=== PATIENT | male | born 1980 | race Caucasian/White ===

== ENCOUNTER 2016-09-15 15:38 | Emergency (ER) | payer OTHER ==
[~2016-09-15] VITALS: Ht 188 cm; Wt 92.3 kg
[~2016-09-15 15:38] MED LIST: AMLO-114 PO; AVP150 PO; INSULIN PUMP NOVOLOG; LISI40TA PO; MULT-506 PO; SIMV40TA2 PO; SYN150 PO
[2016-09-15 15:43] VITALS: TEMP 36.7; Ht 188 cm; Wt 92.3 kg
[2016-09-15] MEDS ORDERED: IBUPROFEN 600 MG TAB PO STA (15:55)
[2016-09-15] MEDS ORDERED: HYDROCODONE/ACETAMOPHEN 5/325MG TAB PO STA (15:55)
[2016-09-15] MEDS ORDERED: LIDO/EPINEPHRINE/SOD BICARB 20 ML VIAL INFIL ONE (16:00)
[2016-09-15] MEDS ORDERED: LISI-725 PO (16:03)
[2016-09-15] MEDS ORDERED: IRBE1TAB50 PO (16:04)
[2016-09-15] MEDS ORDERED: LEVO150T9 PO (16:05)
--- NOTE | 2016-09-15 16:45 | DIAGNOSTIC IMAGING REPORT ---
LEFT FEMUR 2 VIEWS ROUTINE CLINICAL HISTORY: LEFT, THIGH LAC FROM CHAINSAW trauma COMPARISON: None. DISCUSSION: The bones and joint spaces appear intact. There is no evidence of fracture, dislocation or bony disease. There is no evidence for soft tissue swelling. IMPRESSION: Negative study. Electronically signed by: Dieudonne Stark M.D. 09/15/2016 4:44 PM Dictated Date/Time: 09/15/2016 4:43 PM
[2016-09-15] MEDS ORDERED: HYDR-5688 PO (17:55)
[2016-09-15] MEDS ORDERED: CEPH500C2 PO (17:55)
--- NOTE | 2016-09-15 17:59 | EMERGENCY ROOM VISIT NOTE ---
ED Visit Note First contact with patient: 15:46 CHIEF COMPLAINT: Left thigh laceration just prior to arrival HISTORY OF PRESENT ILLNESS: Patient is a 35-year-old white male who presents to the emergency department for evaluation of a laceration to the left thigh from a chainsaw. He was cutting up wide, and the tree fell, knocking the chainsaw out of his hand and into his left leg. He does not believe the blade was running at this time. He was not wearing chaps. Bleeding was controlled with a bandage, the patient was ambulatory at the scene and complains only of a mild stinging pain that he rates a 4/10. He reports that his tetanus is up-to-date. He denies any numbness, tingling or weakness into the left leg. REVIEW OF SYSTEMS: Review of systems as per HPI. All other systems reviewed were negative. At least 6 systems reviewed. PMH: Electronic medical records are reviewed and summarized as above/below. See Problem List. SOCIAL HISTORY: Patient living at home with his family. Nonsmoker, drinks alcohol socially. PHYSICAL EXAM: Vital Signs: Reviewed Nurse's notes. CONSTITUTIONAL: Patient is a well-appearing 35-year-old white male who is awake and alert and in no acute distress. INTEGUMENTARY: There is a 12 cm long horizontal laceration on the anterior mid left thigh. The edges are gaping apart. There is no gross contamination the wound, but there are still some small particles of grass and fabric in the wound. There is no active bleeding. Laceration does extend through the fascial layer medially. The fascial defect is roughly 2 cm in diameter. There is injury to the muscle fibers deep to this. Hip and knee range of motion are full. The left lower extremity is neurovascularly intact. EMERGENCY DEPARTMENT COURSE: Patient was medicated with ibuprofen 600 mg and Riverside 5/325 2 tablets orally. X-rays of the left femur were obtained and were negative. Using sterile technique, the wound was prepped with Betadine and draped with sterile towels. 1% buffered lidocaine with epinephrine was infiltrated into the wound edges. When adequate anesthesia was obtained, the wound was irrigated copiously using over 250 mL of normal saline solution and explored thoroughly. The small pieces of debris were removed with forceps without difficulty. Layered closure was performed. Multiple, 4-0 figure-of- eight Vicryl sutures were placed in the fascial layer, then 4-0 Vicryl sutures were used to's close the subcutaneous layer. Roughly 11 [id number] 4-0 nylon sutures were used to close the skin. The patient tolerated the procedure well. Bacitracin and a compressive dressing were applied. He was issued crutches. Given the nature of the wound, he will be placed on Keflex. He was educated on the worrisome signs or symptoms for which she should return to the emergency department, including but not limited to 2 signs of infection. He is well away from any nerve, vascular or tendinous structures, having only a small injury to the fascial layer in the anterior quadriceps region. LEFT FEMUR 2 VIEWS ROUTINE CLINICAL HISTORY: LEFT, THIGH LAC FROM CHAINSAW trauma COMPARISON: None. DISCUSSION: The bones and joint spaces appear intact. There is no evidence of fracture, dislocation or bony disease. There is no evidence for soft tissue swelling. IMPRESSION: Negative study. Problem List Medical Problems: (1) Diabetes type I Status: Chronic (2) Hx-Hodgkin's Disease Status: Resolved (3) Hypertension Status: Chronic Current/Historical Medications Scheduled Amlodipine (Norvasc), 10 MG PO DAILY Cephalexin Monohydrate (Keflex), 500 MG PO TID Irbesartan (Irbesartan), 1 TAB PO DAILY Levothyroxine Sodium (Levothyroxine Sodium), 300 MCG PO DAILY Lisinopril (Zestril), 20 MG PO DAILY Simvastatin (Zocor), 20 MG PO DAILY Scheduled PRN Hydrocodone/Acetaminophen 5MG/325MG (R[place]ide 5MG/325MG), 1-2 TABLETS PO Q4 PRN for Pain Miscellaneous Medications [insulin pump novolog] Allergies Coded Allergies: Penicillin V (Unverified Allergy, Intermediate, pruritis, 09/06/10) Codeine (Unverified Allergy, Unknown, pt states age 5 had allergy does not know the reaction, 09/06/10) Vital Signs Date Time Temp Pulse Resp B/P Pulse Ox O2 Delivery O2 Flow Rate FiO2 09/15/16 18:22 99 18 151/69 95 09/15/16 15:43 36.7 120 20 153/79 96 Room Air Medications Administered Medications (Trade) Dose Ordered Sig/Gio Route Start Time Stop Time Status Last Admin Dose Admin Ibuprofen (Motrin Tab) 600 mg NOW STAT PO 09/15/16 15:55 09/15/16 15:57 DC 09/15/16 16:04 600 MG Acetaminophen/ Hydrocodone Bitart ([place]ide 5/325 Tab) 2 tab NOW STAT PO 09/15/16 15:55 09/15/16 15:57 DC 09/15/16 16:03 2 TAB Cephalexin Monohydrate (Keflex Cap) 500 mg NOW ONCE PO 09/15/16 18:00 09/15/16 18:01 DC 09/15/16 18:00 500 MG Departure Information Impression Primary Impression: Laceration of left thigh Prescriptions Hydrocodone/Acetaminophen 5MG/325MG (R[place]ide 5MG/325MG) Tab 1-2 TABLETS PO Q4 Y for Pain, #20 TAB For Initial Treatment Prov: Sophia Kinney PA 09/15/16 Cephalexin Monohydrate (KEFLEX) 500 Mg Cap 500 MG PO TID, #21 CAP Prov: Sophia Kinney PA 09/15/16 Referrals No Doctor, Assigned (PCP) Patient Instructions My [facility] Additional Instructions DO NOT drive, drink alcohol, operate machinery, or perform dangerous activities today. You were given medications in the ER that can affect your ability to safely function or operate a vehicle. Hydrocodone/Acetaminophen (R[place]ide) 5/325 mg: Take 1-2 pills every four hours for breakthrough pain. Avoid alcohol, operating machinery or dangerous equipment, working on ladders or roofs, DRIVING, or situations where being under the influence may be dangerous. It is recommended to use an [id number] stool softener such as Colace, 100mg twice daily while taking this medication to avoid constipation. Cephalexin(Keflex) 500mg: Take one pill 3 times daily for 7 days to prevent infection. All antibiotics can cause diarrhea. If this occurs and you feel worse or it does not resolve in 1-2 days follow up with your doctor or return to the Emergency Department as this could be signs of serious underlying problems. Any medication can cause an allergic reaction, stop the pills immediately and return to the ER for rash, hives, breathing difficulties, or swelling. Ibuprofen(Motrin, Advil) may be used for fever or pain. Use 600mg every six hours as needed. Take with food. Avoid using more than 2400mg in a 24 hour period. Do not use 2400mg per day for more than three consecutive days without physician direction. Prolonged inappropriate use can lead to stomach upset or ulcers. (AND/OR) Acetaminophen(Tylenol) may be used for fever or pain. Use 1000mg every six hours as needed. Avoid using more than 3000mg in a 24 hour period. Keep wound clean and dry. Do not allow any crusting or dried blood to accumulate on sutures. If this occurs, use a 1:1 solution of hydrogen peroxide/ water on a Q-tip to clean the wound. Use an antibiotic ointment for 3-4 days, then let wound dry. Suture removal in 12-14 days. Ice and elevate for swelling and pain. Crutches as needed for ambulation. Return to the ER for any signs of infection (increasing redness, swelling, drainage), severe pain, fevers, worsening of your condition.
[2016-09-15] MEDS ORDERED: CEPHALEXIN MONOHYDRATE 250 MG CAP PO ONE (18:00)
[2016-09-15 18:22] VITALS: BP 151/69; PULSE 99; O2SAT 95
== END 2016-09-15 18:25 | disposition home or self-care (01) ==
LOC: C.EDB 15:39 → C.EDD 18:25
DX: S71.112A Laceration without foreign body, left thigh, initial encounter (principal); W29.3XXA Contact with powered garden and outdoor hand tools and machinery, initial encounter; E10.9 Type 1 diabetes mellitus without complications; I10 Essential (primary) hypertension